=== PATIENT | female | born 2005 | race Two or more races ===

== ENCOUNTER 2023-08-23 22:55 | Emergency (ER) | payer OTHER, SELFPAY ==
[2023-08-23 22:57] VITALS: BP 132/84
--- NOTE | 2023-08-24 00:04 | ED.GENMED ---
History of Present Illness
General
Chief Complaint: Cough
Source: patient
Exam Limitations: none
Time Seen by Provider: 08/23/23 23:00
Travel History
Have you had any contact with someone who has COVID-19?: No
Do you have any symptoms of coronavirus? Fever > 100 degrees, chills, cough, shortness of breath, sore throat, loss of taste or smell, muscle aches, or headache?: No
History of Present Illness
History of Present Illness:
This is a 18 year old female that comes in with c/o spitting up blood. States that tonight she was getting ready for bed and she was brushing her teeth when she coughed up some blood in mucous. States that this this cleared and her spit was clear.
States that she called her dad who is out of the country and he told her to come to the ER. States that she has been sick this past week on and Tuesday with vomiting and was very tired. States that today she had a runny nose and her body
aches. States that she has a headache earlier but this was gone. State that she also felt lightheaded and nauseated. Denies any fever, chills, chest pain, SOB, abd pain, vomiting, diarrhea, urinary burning.
Past History
Past History
ED Past Medical History: None; Negative Asthma, HTN, Hypercholesterolemia or NIDDM
ED Past Surgical History: None
Social History
Tobacco: Non-smoker
Alcohol: None
Personal: Single
Living: with family
Review of Systems
Review of Systems
All Other Systems: ROS reviewed and negative except as documented in HPI and ROS
Constitutional: Reports no symptoms; Denies fever or chills
EENT: Reports other (Coughed up mucous with blood streaks)
Respiratory: Reports no symptoms; Denies cough or trouble breathing
Cardiac: Reports no symptoms; Denies chest pain
ABD/GI: Reports nausea; Denies abdominal pain, vomiting or diarrhea
: Reports no symptoms; Denies dysuria, frequency or urgency
Musculoskeletal: Reports no symptoms
Skin: Reports no symptoms
Neurological: Reports other (Lightheaded); Denies dizzy or headache
Psychiatric: Reports no symptoms
Phy Exam
General Physical Exam
General Presentation: well appearing and no apparent distress
General age: appears stated age
General Skin: warm and dry
General Habitus: normal
General Mental: alert
General Hydration: appears well hydrated
ENT Exam
ENT Exam: TM's normal, pharynx normal and neck supple
Eye Exam
Eye Exam: EOMI
Cardiovascular Exam
Cardiovascular Exam: regular rate/rhythm, no edema, no murmur and normal peripheral pulses
Pulmonary Exam
Pulmonary Exam: lungs clear, no respiratory distress, no rales, chest non tender, no crackles, no rhonchi, no wheezing and no cough
Gastrointestinal Exam
Gastrointestinal Exam: normal bowel sounds, non tender, soft, no organomegaly, no pulsatile mass and non distended
Musculoskeletal Exam
Musculoskeletal Exam: full ROM and no edema
Skin Exam
Skin Exam: normal color, warm/dry, no rash and no petechia
Psychiatric Exam
Psychiatric Exam: normal mood/affect
Course
Orders/Labs/Results
Orders:
Orders
08/23/23 23:15
Test Result ONCE
08/23/23 23:49
COVID-19 Antigen Urgent
Source: Nasal Swab
Complete Blood Count/With Diff Urgent
Comprehensive Metabolic Panel Urgent
HCG, Serum Qualitative Screen Urgent
Prothrombin Time Urgent
08/24/23 00:17
CR Chest - 2 Views Urgent
Reason For Exam: Coughed up blood
Abnormal Lab Results
08/23/23
23:49
PT 15.6 H Sec
(11.4-14.6)
08/23/23 23:49
08/23/23 23:49
Labs unremarkable. PT 15.6 with INR 1.26, COVID negative, HCG negative
Vital Signs
Initial and Last Documented VS:
Initial Vital Signs
Temp Pulse Resp BP Pulse Ox
98.2 F 83 18 132/84 99
08/23/23 22:57 08/23/23 22:57 08/23/23 22:57 08/23/23 22:57 08/23/23 22:57
Last Documented Vital Signs
Temp Pulse Resp BP Pulse Ox
98.2 F 83 18 132/84 99
08/23/23 22:57 08/23/23 22:57 08/23/23 22:57 08/23/23 22:57 08/23/23 22:57
MDM/Problems Addressed
Differential Diagnosis Includes:
Hemoptysis, PNA
MDM/Problems Addressed:
This is a 18 year old female that comes in with c/o coughing mucous with streaks of bleed when she was bruising her teeth.
Will check labs, and get Chest x-ray.
Back into see patient. Explained that her blood work and chest x-ray are normal. Explained to patient that if she had a little blood from her nose she may have swallowed this or if there is any irriation in the throat with her coughing can cause
small blood vessels to brake. This may have caused a little blood streak in her mucous. Will discharge patient home.
Chronic conditions affecting care:
NA
Acute Exacerbation and/or Progression of Chronic Illness:
NA
*Radiology
Radiology exam reviewed: preliminary read by ED provider (Chest- Negative for active disease)
*Pulse Oximetry
Patient hypoxic: no
*EKG
Interpreted by ED Provider?: NA
Rate: EKG- N/A
*Lead Loader Interpretation
Rate: Lead Loader- N/A
*Critical Care Note
Total Time (30-74mins, 75-104mins- exclusive of procedures): Not Applicable
ED Attending Note
-
Portions of this chart may have been created with voice recognition software.� Occasional wrong word or��sound alike� substitutions may have occurred due to the inherent limitations of voice recognition software.
Discharge Plan
Departure
Patient Disposition: Home (Routine Discharge)
Date of Disposition: 08/24/23
Time of Disposition: 01:22
Patient with high blood pressure during this ER visit?: Yes
Condition: Good
Covid-19: Negative COVID-19
Discharge Problem:
Cough in adult patient
Instructions: Cough, Adult (DC), BLOOD PRESSURE
Referrals:
Marielle Paige MD [Family Provider] - Call in 1-3 days for appt
Activity Restrictions/Additional Instructions:
As discussed, your blood work is normal along with our chest x-ray. You are COVID negative. This could have been from blood that was from the nose or irritation in the throat. Please increase our water intake to 8-8oz glasses daily. Follow up with
the family doctor as needed. IF YOU HAVE ANY OTHER CONCERNS PLEASE RETURN TO THE EMERGENCY ROOM.
[2023-08-24 00:07] LABS: % Basophils 0.7 % (0-2); % Eosinophils 2.6 % (0-6); % Immature Granulocytes 0.1 % (0-0.5); % Lymphocytes 36.4 % (20.5-51.1); % Monocytes 7.7 % (1.7-9.3); % Neutrophils 52.5 % (42.2-75.2); Absolute Basophils 0.1 10^3/uL (0-0.2); Absolute Eosinophils 0.2 10^3/uL (0-0.7); Absolute Lymphocytes 2.7 10^3/uL (1.2-3.4); Absolute Monocytes 0.6 10^3/uL (0.1-0.6); Absolute Neutrophils 3.8 10^3/uL (1.4-6.5); Hematocrit 38.7 % (37.0-47.0); Hemoglobin 13.2 g/dL (12.0-16.0); Mean Corp Hgb Conc. 34.1 g/dL (33.0-37.0); Mean Corpuscular Hgb 30.1 pg (27.0-31.0); Mean Corpuscular Volume 88.4 fL (81.0-99.0); Mean Platelet Volume 10.2 fL (7.4-10.4); Nucleated Red Blood Cells % 0 %; Platelet Count 284 10^3/uL (130-400); Red Blood Cell Count 4.38 10^6/uL (4.20-5.40); Red Cell Dist. Width 12.5 % (11.5-14.5); White Blood Cell Count 7.3 10^3/uL (4.8-10.8)
[2023-08-24 00:19] LABS: INR 1.26; PT 15.6 Sec (11.4-14.6)
[2023-08-24 00:23] LABS: HCG, Serum Qualitative Screen Negative
[2023-08-24 00:25] LABS: ALT (SGPT) 12 U/L (0-35); AST (SGOT) 22 U/L (14-36); Albumin 4.3 g/dl (3.5-5.0); Alkaline Phosphatase 72 U/L (38-126); Blood Urea Nitrogen 15 mg/dl (7-17); Calcium 9.5 mg/dl (8.4-10.2); Carbon Dioxide 22 mmol/L (22-30); Chloride 104 mmol/L (98-107); Glucose 86 mg/dl (70-99); Potassium 3.8 mmol/L (3.5-5.1); Sodium 137 mmol/L (135-145); Total Bilirubin 0.4 mg/dl (0.2-1.3); Total Protein 7.2 g/dl (6.3-8.2); eGFR > 60.00
[2023-08-24 00:32] LABS: COVID-19 Antigen Negative (Negative)
== END 2023-08-24 01:10 | disposition home or self-care (01) ==
LOC: EMR 22:55
PROVIDERS: Clinical Nurse Specialist Family Health; EMERGENCY PHYSICIAN Student in an Organized Health Care Education/Training Program; FAMILY PHYSICIAN Family Medicine
DX: R05.9 Cough, unspecified (principal)
CPT/HCPCS: 99283; 71046; 80053; 84703; 85025; 85610; 87811

== ENCOUNTER 2023-08-29 09:44 | Emergency (ER) | payer OTHER, SELFPAY ==
[2023-08-29 09:46] VITALS: BP 128/85
--- NOTE | 2023-08-29 10:33 | ED.GENMED ---
History of Present Illness
General
Chief Complaint: Eye Problems
Source: patient
Exam Limitations: none
Time Seen by Provider: 08/29/23 09:50
Nursing documentation reviewed up to this point in time: agreed with
Travel History
Have you had any contact with someone who has COVID-19?: No
Do you have any symptoms of coronavirus? Fever > 100 degrees, chills, cough, shortness of breath, sore throat, loss of taste or smell, muscle aches, or headache?: No
History of Present Illness
History of Present Illness:
18-year-old female with no medical problems presents for bilateral eye redness, photophobia and irritation and tearing since this morning about 8:30 AM. Patient says that she put her contacts in and had them in for about a half an hour before she
started feeling irritated and photophobic. She was able to drive to work while squinting. When she got to work her eyes were watering and she had more pain. She decided to drive back home to get her glasses and on the way took her contacts out
and was squinting in order to drive herself home. Patient ended up calling a friend for a ride. She has blurred vision, sensitivity to light, is unable to to do the eye chart. She does not sleep in her contacts, she has not had any recent
illness, there were no injuries, she had no change to her contact solution. These contacts are week old and she normally changes them twice a month. She is pretty good about taking care of her contacts.
Past History
Past History
ED Past Medical History: None; Negative Asthma, HTN, Hypercholesterolemia or NIDDM
ED Past Surgical History: None
Social History
Tobacco: Non-smoker
Alcohol: None
Personal: Single
Living: with family
Review of Systems
Review of Systems
Allergies reviewed?: Yes
All Other Systems: Not applicable
Phy Exam
Physical Exam
Physical Exam:
GENERAL: Alert , in no apparent distress
EYE: pupils equal and reactive, very photophobic, injected conjunctiva, clear tearing ,unable to keep eyes open
+ uptake of fluroscein on rosen lamp
large haziness over center pupil and ring around the cornea on thr eight
less large on the L
unable to appreicate flare on slit lamp
CARDIAC: Regular rate and rhythm .
LUNGS: Clear breath sounds bilaterally, no acute respiratory distress, no wheezes/rales/rhonchi
ABDOMEN: Soft, without focal tenderness, no r/g, no cvat, normal bowel sounds
NEUROLOGICAL: Alert and oriented, no focal neuro deficits
SKIN: Warm and dry, skin intact.
PSYCH: Normal and appropriate interaction.
Course
Orders/Labs/Results
Orders:
Orders
08/29/23 10:36
Ofloxacin [Ocuflox] 1 drop .ROUTE .STK-MED ONE
08/29/23 11:15
Fluorescein Sodium [Ful-Ciera] 1 mg .ROUTE .STK-MED ONE
Tetracaine HCl [Tetracaine 0.5% Ophthalmic Solution] 1 drop .ROUTE .STK-MED ONE
08/29/23 13:00
Ofloxacin [Ocuflox] See Dose Instructions OPHTH QID
Vital Signs
Initial and Last Documented VS:
Initial Vital Signs
Temp Pulse Resp BP Pulse Ox
98.3 F 118 20 128/85 99
08/29/23 09:46 08/29/23 09:46 08/29/23 09:46 08/29/23 09:46 08/29/23 09:46
Last Documented Vital Signs
Temp Pulse Resp BP Pulse Ox
98.3 F 118 20 128/85 99
08/29/23 09:46 08/29/23 09:46 08/29/23 09:46 08/29/23 09:46 08/29/23 09:46
MDM/Problems Addressed
Differential Diagnosis Includes:
uveitis, corneal abrasion, corneal ulcer
MDM/Problems Addressed:
18-year-old female contact lens user developed severe eye pain, photophobia, redness, clear tearing and blurred vision after putting her contact lenses and leaving them in for about an hour. Patient says she had not changed her solution and she
does not sleep in them. They are new within the last week. She changes them every other week. Patient has not had any trauma. On exam she is unable to perform the visual acuity chart, she has severe photophobia. Her conjunctive is severely
injected, her pupils seem reactive and equal, she has no traumatic findings, she has what looks to be uptake of fluorescein around the margin of her cornea where her contact lens would sit like an ulceration as well as uptake that seems cloudy over
her corneas overlying her pupillary axis bilaterally, worse on the right than the left. I did not appreciate any cell flare on slit-lamp exam. Her pressures were 13 on the right and 12 on the left. I spoke with the eye doctor on-call
Michele who would see her in the office at 1 PM and recommended that the patient put ofloxacin drops every 5 minutes in each eye for the first 30 minutes and then every 30 minutes until her appointment.
*Critical Care Note
Total Time (30-74mins, 75-104mins- exclusive of procedures): Not Applicable
ED Attending Note
-
Portions of this chart may have been created with voice recognition software.� Occasional wrong word or��sound alike� substitutions may have occurred due to the inherent limitations of voice recognition software.
Discharge Plan
Departure
Patient Disposition: Home (Routine Discharge)
Date of Disposition: 08/29/23
Time of Disposition: 11:01
Patient with high blood pressure during this ER visit?: No
Condition: Fair
Covid-19: Not Applicable
Discharge Problem:
Corneal ulcer
Instructions: Corneal Abrasion (DC)
Referrals:
Truong Garcia MD [Family Provider] -
Lenora Bautista MD [Active] - 08/29/23 1:00 pm (GO TO THE OFFICE AT 1 PM)
Activity Restrictions/Additional Instructions:
Use the eyedrops every 5 minutes for the first half an hour. the eye doctor can see you at 1 PM.
Do not put your contacts back in your eyes. Return for any concerns
Interventions
Interventions:
*General Assessment Last Done: 08/29/23 11:19
*ED COVID-19 Vaccine History Last Done: 08/29/23 09:48
*Nursing Disposition Last Done: 08/29/23 11:19
Discharge Date and Time
Discharge Date/Time: 08/29/23 11:19
[2023-08-29] MEDS: OCUFLOX 2 DROP OPHTH (10:37)
== END 2023-08-29 11:19 | disposition home or self-care (01) ==
LOC: EMR 09:44
PROVIDERS: EMERGENCY PHYSICIAN Emergency Medicine; FAMILY PHYSICIAN Family Medicine
DX: H16.003 Unspecified corneal ulcer, bilateral (principal)
CPT/HCPCS: 99283